=== PATIENT | male | born 1970 | race Caucasian/White ===

== ENCOUNTER 2024-10-30 20:27 | Emergency (ER) | payer BC ==
[~2024-10-30] VITALS: Ht 175.3 cm; Wt 93.2 kg
[2024-10-30 20:29] VITALS: BP 172/95; PULSE 84; RESP 18; TEMP 97.9; O2SAT 100
[2024-10-30] MEDS ORDERED: MORPHINE SULFATE 2 MG/ML SYRINGE IVP ONE (21:00)
[2024-10-30] MEDS: MORPHINE SULFATE 10 MG/ML VIAL IVP ONE (21:34)
[2024-10-30] MEDS: KETOROLAC TROMETHAMINE 30 MG/ML VIAL IVP ONE (21:34)
[2024-10-30] MEDS: ONDANSETRON HCL 4 MG/2 ML VIAL IVP ONE (21:34)
[2024-10-30] MEDS: BACITRACIN 28 GM OINTMENT TP ONE (21:40)
[2024-10-30] MEDS ORDERED: IBUP-1554 PO (21:59)
[2024-10-30] MEDS ORDERED: HYDR-4062 PO (21:59)
[2024-10-30] MEDS ORDERED: BACI28.410 TP (21:59)
[2024-10-30] MEDS: MIDAZOLAM HCL 2 MG/2 ML VIAL IVP ONE (22:18)
== END 2024-10-30 22:59 | disposition home or self-care (01) ==
LOC: EMS 20:30
DX: T21.22XA Burn of second degree of abdominal wall, initial encounter (principal); T24.211A Burn of second degree of right thigh, initial encounter; E11.9 Type 2 diabetes mellitus without complications; I10 Essential (primary) hypertension; X08.8XXA Exposure to other specified smoke, fire and flames, initial encounter; Y93.89 Activity, other specified; Y92.89 Other specified places as the place of occurrence of the external cause; Y99.8 Other external cause status
CPT/HCPCS: 99284; 96374; 96375; 16020; J1885; J2250; J2270; J2405

== ENCOUNTER 2024-11-02 06:36 | Emergency (ER) | payer BC ==
[~2024-11-02] VITALS: Ht 175.3 cm; Wt 90.0 kg
[~2024-11-02 06:36] MED LIST: BACI28.410 TP; HYDR-4062 PO; IBUP-1554 PO
[2024-11-02 06:53] VITALS: BP 157/90; PULSE 67; RESP 12; TEMP 98.4; O2SAT 97
[2024-11-02] MEDS: BACITRACIN 28 GM OINTMENT TP ONE (07:39)
== END 2024-11-02 07:51 | disposition home or self-care (01) ==
LOC: EMS 06:40
DX: T24.211A Burn of second degree of right thigh, initial encounter (principal); E11.9 Type 2 diabetes mellitus without complications; I10 Essential (primary) hypertension; Z79.899 Other long term (current) drug therapy; Y92.89 Other specified places as the place of occurrence of the external cause
CPT/HCPCS: 16000; 99282; Z7502; Z7610